=== PATIENT | male | born 1980 | race Caucasian/White ===

== ENCOUNTER 2017-06-03 07:58 | Emergency (ER) | payer MEDICAID ==
[~2017-06-03] VITALS: Ht 185.4 cm; Wt 106.0 kg
[2017-06-03 07:59] VITALS: BP 130/78
[2017-06-03] MEDS ORDERED: DIAZEPAM 5 MG TABLET PO ONE (08:30)
[2017-06-03] MEDS ORDERED: KETOROLAC 30 MG/1 ML ONE (08:30)
[2017-06-03] MEDS ORDERED: KETOROLAC 30 MG/1 ML IM ONE (08:30)
[2017-06-03] MEDS ORDERED: DIAZEPAM 5 MG TABLET ONE (08:30)
== END 2017-06-03 09:30 | disposition home or self-care (01) ==
LOC: ED 08:43
DX: M54.16 Radiculopathy, lumbar region (principal); M25.562 Pain in left knee; R20.0 Anesthesia of skin
CPT/HCPCS: 96372; 99285; J1885

== ENCOUNTER 2018-04-27 18:22 | Emergency (ER) | payer MEDICAID ==
[~2018-04-27] VITALS: Ht 185.4 cm; Wt 95.6 kg
[2018-04-27 18:49] VITALS: BP 122/80
[2018-04-27] MEDS ORDERED: KETOROLAC 30 MG/1 ML IM ONE (19:30)
[2018-04-27] MEDS ORDERED: DIAZEPAM 5 MG TABLET PO ONE (19:30)
[2018-04-27] MEDS ORDERED: KETOROLAC 30 MG/1 ML ONE (19:33)
[2018-04-27] MEDS ORDERED: DIAZEPAM 5 MG TABLET ONE (19:33)
[2018-04-30] MEDS ORDERED: CYCL-259 PO (17:14)
== END 2018-04-27 20:09 | disposition home or self-care (01) ==
LOC: ED 20:06
DX: G89.11 Acute pain due to trauma (principal); M54.6 Pain in thoracic spine; M54.9 Dorsalgia, unspecified; G89.29 Other chronic pain; W01.0XXA Fall on same level from slipping, tripping and stumbling without subsequent striking against object, initial encounter; Y93.9 Activity, unspecified; Y92.89 Other specified places as the place of occurrence of the external cause; Y99.8 Other external cause status
CPT/HCPCS: 72072; 96372; 99283; J1885

== ENCOUNTER 2019-02-03 21:01 | Emergency (ER) | payer MEDICAID ==
[~2019-02-03] VITALS: Ht 185.4 cm; Wt 102.0 kg
[~2019-02-03 21:01] MED LIST: CYCL-259 PO
[2019-02-03 21:03] VITALS: BP 117/70
--- NOTE | 2019-02-03 21:59 | NUR ---
DARIEL WRIST BRACE PLACED BY TECH. PT. OUT TO RN STATION REQUESTING TO HAVE A SPLINT PLACED "LIKE I HAD WHEN I FIRST BROKE IT, THIS BRACE DOESN'T SUPPORT MY FINGERS WHERE THEY ARE HURTING." AWAITING TO UPDATE [facility] ESPINOZA.
--- NOTE | 2019-02-03 22:01 | NUR ---
URI [facility] UPDATED ON PT. REQUEST. AWAITING NEW ORDERS.
== END 2019-02-03 22:50 | disposition home or self-care (01) ==
LOC: ED 22:44
DX: S63.91XA Sprain of unspecified part of right wrist and hand, initial encounter (principal); G89.29 Other chronic pain; X58.XXXA Exposure to other specified factors, initial encounter; Y93.89 Activity, other specified; Y92.009 Unspecified place in unspecified non-institutional (private) residence as the place of occurrence of the external cause; Y99.8 Other external cause status
CPT/HCPCS: 29125; 99283

== ENCOUNTER 2020-01-16 15:30 | Emergency (ER) | payer MEDICAID ==
[~2020-01-16] VITALS: Ht 185.4 cm; Wt 111.5 kg
--- NOTE | 2020-01-16 15:54 | NUR ---
THIS IS A 39 YO MALE COMING IN FOR MUSCLE/BODY ACHES, FATIGUE, HEADACHE, CONGESTION/INTERMITTENT SOB, INTERMITTENT NAUSEA X4 DAYS, HAD EXPOSURE TO COVID LAST WEEK FROM 3 DIFFERENT PEOPLE AT WORK. RESPIRATIONS EVEN AND UNLABORED, LUNG SOUNDS CLEAR THROUGHOUT. MONITORING IN PLACE, VSS. PERRLA, MOVES ALL EXTREMITIES WELL, PULSES STRONG IN ALL EXTREMITIES. CALL LIGHT IN [facility]. BRIAN HURST IN ROOM FOR SUMAN
--- NOTE | 2020-01-16 16:30 | NUR ---
PATIENT RESTING ON GURNEY, RESPIRATIONS EVEN AND UNLABORED, MONITORING IN PLACE, VSS.
[2020-01-16 17:15] LABS: RAPID INFLUENZA A Negative (Negative); RAPID INFLUENZA B Negative (Negative)
[2020-01-16 17:39] VITALS: BP 120/77
--- NOTE | 2020-01-16 17:40 | NUR ---
Patient/Caregiver given discharge instructions and they have confirmed that they understand the instructions. Patient ambulatory with steady gait.
== END 2020-01-16 18:01 | disposition home or self-care (01) ==
LOC: ED 16:48
DX: B34.9 Viral infection, unspecified (principal); Z20.828 Contact with and (suspected) exposure to other viral communicable diseases; R11.0 Nausea; F17.200 Nicotine dependence, unspecified, uncomplicated
CPT/HCPCS: 36415; 71045; 87400; 87635; 99284